=== PATIENT | female | born 1995 | race Caucasian/White ===

== ENCOUNTER 2016-09-28 14:54 | Emergency (ER) | payer OTHER ==
--- NOTE | ~2016-09-28 | US67 ---
[facility] A Service of [facility] RADIOLOGY TEXT RESULTS PATIENT: JAYLEN MANCILLA LOCATION: SED : [birth year] UNIT #: [id number] AGE: [address]: Rubén Banks DO SEX: F ORDER DR: [id number] [place] [id number] E MR#: [id number] Acc #: [id number] NAME: JAYLEN MANCILLA : 1995 SEX: F STUDY DATE/TIME: 09/28/2016 15:01 UNIT: SED ROOM: STUDY DESCRIPTION: US Gallbladder Ordering Physician: [facility] MEDICAL IMAGING REPORT This report is preliminary unless electronic signature is present. EXAM Gallbladder ultrasound HISTORY Right upper quadrant pain for 1 day. FINDINGS Ultrasound examination of the gallbladder demonstrates no gallstones, gallbladder distension or biliary dilatation. The common bile duct measures 3 mm in diameter. No hepatic mass adjacent to the gallbladder fossa. IMPRESSION Normal ultrasound examination of the gallbladder. Dictated by... Juvenla Molina M.D. THIS IS AN ELECTRONICALLY VERIFIED REPORT Juvenal Molina M.D. at 09/28/2016 10:49 PM DFL/kaevh TD: 09/28/2016 17:13 JOB #: [id number] MEDICAL IMAGING REPORT Page 1 of 1
[~2016-09-28 14:54] MED LIST: MOBIC PO
[2016-09-28 15:05] LABS: URINE SOURCE CLEAN CATCH
[2016-09-28 15:09] LABS: MICRO INDICATED? YES; URINE APPEARANCE CLOUDY; URINE BILIRUBIN NEG (NEG); URINE BLOOD 3+ (NEG); URINE COLOR YELLOW; URINE GLUCOSE NEG (NORM); URINE KETONE TRACE (NEG); URINE LEUKOCYTE ESTERASE 1+ (NEG); URINE NITRATE POS (NEG); URINE PH 5.5 (5-8); URINE PROTEIN 2+ (NEG); URINE SPECIFIC GRAVITY >=1.030 (1.003-1.035); URINE UROBILINOGEN 0.2 MG/DL (NORM)
[2016-09-28 15:15] LABS: CULTURE INDICATED? YES; URINE BACTERIA 3+ (NEG); URINE MUCUS PRESENT; URINE SQUAMOUS EPITHELIAL CELL MODERATE /[HPF]; URINE WBC INNUM /[HPF] (0-5)
[2016-09-28 15:16] LABS: BASOPHIL% 0.4 % (0-2.5); DIFF IND NO; HEMATOCRIT 37.9 % (35.0-45.0); HEMOGLOBIN 12.8 gm/dL (12.0-16.0); LYMPHOCYTE% 9.3 % (17.0-45.0); MEAN CELL VOLUME 86.1 FL (83-96); MEAN CORPUSCULAR HGB CONC 33.7 g/dL (30-36); MEAN PLATELET VOLUME 7.9 FL (6.5-11.5); MONOCYTE# 0.9 X10e3 (0-1.0); MONOCYTE% 8.1 % (3.0-12.0); NEUTROPHIL# 9.2 X10e3 (1.5-7.1); NEUTROPHIL% 82.2 % (40-75); PLATELET COUNT 208 X10e3 (140-420); RED CELL DISTRIBUTION WIDTH 12.9 % (11.0-15.5); WHITE BLOOD COUNT 11.2 X10e3 (4.0-10.5)
[2016-09-28 15:28] LABS: BILIRUBIN, DIRECT 0.1 mg/dL (0.0-0.2); BILIRUBIN,INDIRECT 0.4 mg/dL (0.0-0.9); BILIRUBIN,TOTAL 0.5 mg/dL (0.2-2.0); BUN/CREATININE RATIO 24.28; CALCIUM SERUM 8.8 mg/dL (8.4-10.2); CREATININE SERUM 0.7 mg/dL (0.6-1.4); POTASSIUM 3.4 mmol/L (3.5-5.1); PROTEIN TOTAL SERUM 7.5 g/dL (6.0-8.3)
[2016-09-28] MEDS ORDERED: CIPROFLOXACIN500 M1 PO (16:41)
[2016-09-28] MEDS ORDERED: IBUPROFEN600 MG PO (16:42)
== END 2016-09-28 16:42 | disposition home or self-care (01) ==
LOC: SED 14:54
PROVIDERS: Emergency Medicine
DX: N39.0 Urinary tract infection, site not specified (principal); Z98.890 Other specified postprocedural states; Z79.899 Other long term (current) drug therapy
CPT/HCPCS: 36415; 76705; 80048; 80076; 81003; 83605; 83690; 84703; 85025; 87086; 87088; 87186; 96361; 96374; 96375; 99284; J0696; J2270; J2405